=== PATIENT | male | born 1950 | race Caucasian/White ===

== ENCOUNTER 2020-05-28 06:35 | Outpatient (REF) | payer MEDICARE, SELFPAY ==
[2020-05-28 07:33] LABS: Alanine Aminotransferase 21 U/L (0-40); Albumin Level 4.3 g/dL (3.5-5.0); Alkaline Phosphatase 59 U/L (39-117); Anion Gap 14 (12-20); Aspartate Amino Transferase 23 U/L (5-37); Bilirubin Total 0.6 mg/dL (0.0-1.0); Blood Urea Nitrogen 26 mg/dL (9-16); Calcium 9.2 mg/dL (8.4-10.2); Carbon Dioxide 27 mmol/L (22-29); Chloride 104 mmol/L (96-108); Cholesterol 204 mg/dL; Estimated Glomerular Filt Rate 56; Glucose Fasting 103 mg/dL (60-99); HDL Cholesterol 52 mg/dL; LDL Cholesterol Calculated 116 mg/dl; Potassium 4.8 mmol/l (3.3-5.1); Sodium 140 mmol/L (135-145); Total Protein 7.6 g/dL (6.5-8.0); Triglycerides 182 mg/dL
== END 2020-05-28 06:36 | disposition home or self-care (01) ==
LOC: HO.LAB 06:35
PROVIDERS: PCP Internal Medicine; Visit Provider Internal Medicine
DX: I10 Essential (primary) hypertension (principal); T14.8XXA Other injury of unspecified body region, initial encounter
CPT/HCPCS: 80053; 80061; 84153; 86618

== ENCOUNTER 2020-06-26 09:34 | Outpatient (REF) | payer MEDICARE, SELFPAY ==
[2020-06-26 12:42] LABS: Erythrocyte Sedimentation Rate 12 MM/HR (0-15)
== END 2020-06-26 09:35 | disposition home or self-care (01) ==
LOC: HO.LAB 09:34
PROVIDERS: PCP Internal Medicine; Visit Provider Internal Medicine
DX: M35.3 Polymyalgia rheumatica (principal)
CPT/HCPCS: 36415; 85652

== ENCOUNTER 2021-11-14 14:37 | Outpatient (REF) | payer MEDICARE, SELFPAY ==
[2021-11-14 19:10] LABS: Alanine Aminotransferase 22 U/L (0-40); Albumin Level 3.9 g/dL (3.5-5.0); Alkaline Phosphatase 62 U/L (39-117); Anion Gap 15 (12-20); Aspartate Amino Transferase 22 U/L (5-37); Bilirubin Total 0.4 mg/dL (0.0-1.0); Blood Urea Nitrogen 26 mg/dL (9-16); Calcium 9.2 mg/dL (8.4-10.2); Carbon Dioxide 20 mmol/L (22-29); Chloride 108 mmol/L (96-108); Estimated Glomerular Filt Rate 49; Glucose Random 110 mg/dL (60-115); Potassium 3.8 mmol/L (3.3-5.1); Sodium 139 mmol/L (135-145); Total Protein 7.4 g/dL (6.5-8.0)
== END 2021-11-14 14:38 | disposition home or self-care (01) ==
LOC: HO.MANLDS 14:37
PROVIDERS: PCP Internal Medicine; Visit Provider Internal Medicine
DX: I10 Essential (primary) hypertension (principal)
CPT/HCPCS: 36415; 80053

== ENCOUNTER 2022-01-28 13:03 | Outpatient (REF) | payer MEDICARE, SELFPAY ==
--- NOTE | ~2022-01-28 | XR_ITS ---
EXAMINATION: XR KNEE, RIGHT CLINICAL INFORMATION: Pain COMPARISON: Radiographs right lower leg 04/05/2018 TECHNIQUE: The right knee is imaged in 3 views: Upright AP, tunnel, and axial patella. FINDINGS: There is no knee joint compartment narrowing, erosive change, or chondrocalcinosis. No bony destructive process or periostitis. Axial view patella shows no lateralization or tilting. The series does not include a lateral view, unable to assess for suprapatellar effusion. XR/XR knee RT 3V IMPRESSION: -No knee joint compartment narrowing, erosive change, or chondrocalcinosis. -No lateralization or tilting patella. -Lateral view is not included in series, unable to assess for suprapatellar effusion.
--- NOTE | ~2022-01-28 | XR_ITS ---
EXAMINATION: XR BILATERAL HIPS WITH AP PELVIS CLINICAL INFORMATION: Hip pain COMPARISON: None TECHNIQUE: Each hip is imaged in AP and frog-lateral projections. There are total of 4 views, 2 on each side. FINDINGS: Right: Normal bony mineralization. No fracture, dislocation or destructive process. No hip joint narrowing or erosive change or visible chondrocalcinosis. The pubis is unremarkable. Left: Right: Normal bony mineralization. No fracture, dislocation or destructive process. No hip joint narrowing or erosive change or visible chondrocalcinosis. The pubis is unremarkable. XR/XR hips MOISES min 3V IMPRESSION: No hip joint narrowing or erosive changes.
--- NOTE | ~2022-01-28 | XR_ITS ---
EXAMINATION: XR LUMBOSACRAL SPINE CLINICAL INFORMATION: Low back pain COMPARISON: None TECHNIQUE: Three views of the lumbosacral spine. FINDINGS: There are 5 nonrib-bearing lumbar vertebrae of normal height and normal lumbar lordosis. Probable mild osteopenia. No lumbar vertebral compression, spondylolisthesis, or destructive process. Mild disc narrowing T10-T11 through L1-L2 no visible erosive changes. Mild facet degeneration L4-S1. The SI joints are unremarkable. XR/XR lumbar spine 2-3V IMPRESSION: -Probable mild osteopenia. No vertebral compression or destructive process. -Mild multilevel degenerative disc changes T10-L2. Mild facet degeneration L4-S1.
== END 2022-01-28 13:04 | disposition home or self-care (01) ==
LOC: HO.XRAY 13:03
PROVIDERS: PCP Internal Medicine; Visit Provider Internal Medicine
DX: M54.50 Low back pain, unspecified (principal); M25.561 Pain in right knee; M25.551 Pain in right hip; M25.552 Pain in left hip
CPT/HCPCS: 72100; 73522; 73562

== ENCOUNTER 2022-04-09 14:11 | Outpatient (REF) | payer MEDICARE, SELFPAY ==
--- NOTE | ~2022-04-09 | US_ITS ---
EXAMINATION: ULTRASOUND EXTREMITY NONVASCULAR, RIGHT KNEE CLINICAL INFORMATION: Right knee pain COMPARISON: Right knee x-rays 01/28/2022 TECHNIQUE: Grayscale and color Doppler imaging of the right knee was obtained. Limited imaging of the left knee was obtained for comparison purposes. FINDINGS: No focal superficial mass identified. No well organized fluid collection appreciated. Trace suprapatellar joint effusion. No abnormal color Doppler flow. US/US extremity nonvascular osborne IMPRESSION: Trace suprapatellar joint effusion of the right knee.
== END 2022-04-09 14:12 | disposition home or self-care (01) ==
LOC: HO.US 14:11
PROVIDERS: Visit Provider Physician Assistant
DX: M25.561 Pain in right knee (principal)
CPT/HCPCS: 76882

== ENCOUNTER 2022-04-28 08:42 | Outpatient (REF) | payer MEDICARE, SELFPAY ==
--- NOTE | ~2022-04-28 | MR_ITS ---
EXAMINATION: MR LUMBAR SPINE WITHOUT CONTRAST CLINICAL INFORMATION: 71-year-old with lumbago and right sciatica. COMPARISON: None TECHNIQUE: MRI of the lumbar spine was obtained using routine sequences without contrast. FINDINGS: Coronal Alignment: Slight S-shaped lumbar scoliotic curvature, mildly convex to the right at L2-L3 and to the left at T12-L1. Sagittal Alignment: Normal. Lumbosacral Junction: Normal. 5 nonrib-bearing lumbar-type vertebral bodies. Vertebral Bodies: Normal height. Disc Spaces and Endplates: Multilevel egmz-di-nlfkipfz degrees of intervertebral disc space height loss and disc desiccation between T12-L1 and L5-S1 inclusive, with the gvww-zh-ryugcgnr degrees of anterolateral spondylosis most apparent at L1-L2 and T12-L1. Scattered small multilevel Schmorl's nodes are noted as well. Spinal Canal: There are relatively short pedicles throughout the mid to lower lumbar spine with a borderline to mild degree of developmental spinal canal narrowing. Bone Marrow: Minor type I degenerative marrow signal changes seen along the endplates posteriorly at L1-L2 and T12-L1. Minor type I degenerative marrow signal changes seen along the endplates at L5-S1 and adjacent to a Schmorl's node along the inferior endplate of L4. Type II degenerative marrow signal changes seen along the endplates at multiple levels with a small benign vertebral hemangioma in the T12 vertebral body. There is also a subcentimeter benign vertebral hemangioma in the L5 vertebral body. There is a 5 mm focus of low T1 signal in the dorsolateral aspect of the L2 vertebral body on the left which is slightly hyperintense centrally on STIR imaging with a thin rim of what appears to be some fat signal. This could reflect a small lipid poor hemangioma or other benign lesion. No suspicious marrow replacing process is suspected. Conus Medullaris: Terminates at L1-L2. Morphology and signal is normal. Intradural Nerve Roots: Within normal limits. L5-S1: There is mild disc bulging slightly asymmetric to the right with a superimposed central extruded disc herniation with mild cephalad migration, with mild flattening of the central dural sac. There is tnlf-uf-ehxtmnmb bilateral facet arthrosis with mild ligamentum flavum thickening and mild central canal stenosis. Mild narrowing of the subarticular zones is noted bilaterally with moderate left-sided and quzuwvxs-sk-fhwmus right-sided neural foraminal stenosis, with disc osteophyte complex abutting the exiting right L5 nerve root. L4-L5: Diffuse disc bulging is noted, with flattening of the ventral dural sac, with ligamentum flavum thickening and moderate bilateral facet arthropathy. There is wtsg-um-frylsntb central canal stenosis, with crowding of the subarticular zones bilaterally, with moderate bilateral neural foraminal stenosis. Disc bulging contacts the extra foraminal L4 nerve roots bilaterally. L3-L4: Concentric disc bulging is noted, with flattening of the ventral dural sac and a prominent dorsal epidural fat pad with bilateral paravertebral/posterolateral disc osteophyte complexes and moderate facet arthropathy. Mild central canal stenosis is noted, with mild narrowing of the subarticular zones bilaterally, with doly-fb-wivgyzzt bilateral neural foraminal stenosis. Disc osteophyte complex contacts the exiting L3 nerve roots bilaterally. L2-L3: Concentric disc osteophyte complex is noted with flattening of the ventral dural sac with a slightly prominent dorsal epidural fat pad and mild central canal stenosis with some crowding of the intradural nerve roots and crowding of the subarticular zones bilaterally. There is kzfi-eg-rrfdgpaq bilateral neural foraminal stenosis without neural impingement. L1-L2: Concentric disc osteophyte complex is noted asymmetric to the left, with flattening of the ventral dural sac and mild central canal stenosis with crowding of the intradural nerve roots. There is moderate left and mild right subarticular recess stenosis with left lateral recess stenosis and probable encroachment on the traversing left L2 nerve root. Minor facet arthrosis is noted bilaterally with qrym-op-xtjnnezd bilateral neural foraminal stenosis without exiting neural impingement. T12-L1: Posterior disc osteophyte complex noted with mild bilateral facet arthrosis without significant canal or neuroforaminal stenosis. Paraspinal/Retroperitoneal: Suspect 3.1 cm distal infrarenal abdominal aortic aneurysm. ACR best practice guidelines suggest follow-up every 3 years if asymptomatic. Additionally, there is a 3.4 x 3.8 cm left common iliac artery aneurysm. Recommend vascular consultation. The paravertebral soft tissues are otherwise unremarkable. MR/MR lumbar spine wo con IMPRESSION: 1. Slight S-shaped lumbar scoliotic curvature as described above with multilevel DDD and spondylosis. 2. Central disc herniation at L5-S1 and multilevel disc bulging and disc osteophyte complexes throughout the lumbar spine as detailed above, superimposed on congenitally short pedicles with a mild degree of developmental spinal canal narrowing, with multilevel bhuh-tj-kbplxxmv degrees of spinal canal stenosis as detailed above. 3. Multilevel bilateral facet arthropathy, with multilevel bilateral neural foraminal stenosis, most apparent on the right at L5-S1. See above for details. 4. 3.8 cm left common iliac artery aneurysm and a 3.1 cm distal infrarenal abdominal aortic aneurysm. Given the above findings, vascular consultation is strongly suggested. The [facility] staff will call to confirm receipt of this report with acknowledgement of the findings and any recommendations.
== END 2022-04-28 08:43 | disposition home or self-care (01) ==
LOC: HO.MRI 08:42
PROVIDERS: Visit Provider Internal Medicine
DX: M54.41 Lumbago with sciatica, right side (principal)
CPT/HCPCS: 72148

== ENCOUNTER 2022-10-16 07:29 | Outpatient (REF) | payer MEDICARE, SELFPAY ==
[2022-10-16 12:12] LABS: Hemoglobin 13.9 g/dl (14.0-18.0); Mean Corpuscular HGB Conc 33.1 g/dl (31.0-36.0); Mean Corpuscular Hemoglobin 30.8 pg (27.0-33.0); Mean Corpuscular Volume 93.1 fL (80.0-98.0); Mean Platelet Volume 11.7 fL (9.4-12.4); Platelet Count 198 X10*3/uL (160-400); Red Blood Count 4.51 X10*6/uL (4.60-5.80); Red Cell Distribution Width 13.7 % (11.0-16.0); White Blood Count 5.5 X10*3/uL (4.8-10.8)
[2022-10-16 12:56] LABS: Alanine Aminotransferase 23 U/L (0-40); Albumin Level 4.1 g/dL (3.5-5.0); Alkaline Phosphatase 74 U/L (39-117); Anion Gap 12 (12-20); Aspartate Amino Transferase 26 U/L (5-37); Bilirubin Total 0.7 mg/dL (0.0-1.0); Blood Urea Nitrogen 22 mg/dL (9-16); Calcium 8.9 mg/dL (8.4-10.2); Carbon Dioxide 24 mmol/L (22-29); Chloride 106 mmol/L (96-108); Cholesterol 215 mg/dL; Estimated Glomerular Filt Rate 56; Glucose Fasting 98 mg/dL (60-99); HDL Cholesterol 53 mg/dL; LDL Cholesterol Calculated 129 mg/dl; Potassium 4.3 mmol/L (3.3-5.1); Sodium 138 mmol/L (135-145); Total Protein 6.9 g/dL (6.5-8.0); Triglycerides 165 mg/dL
[2022-10-16 13:02] LABS: Prostate Specific Antigen 1.62 ng/mL (<0.05-4.0)
== END 2022-10-16 07:30 | disposition home or self-care (01) ==
LOC: HO.MANLDS 07:29
PROVIDERS: Visit Provider Internal Medicine
DX: E78.1 Pure hyperglyceridemia (principal); Z12.5 Encounter for screening for malignant neoplasm of prostate
CPT/HCPCS: 36415; 80053; 80061; 84153; 85027

== ENCOUNTER 2024-01-13 07:48 | Outpatient (REF) | payer MEDICARE, SELFPAY ==
--- NOTE | ~2024-01-13 | US_ITS ---
EXAMINATION: US RETROPERITONEAL LIMITED (AORTA) CLINICAL INFORMATION: AAA without rupture. COMPARISON: MR lumbar spine 04/28/2022: 3.8 cm left common iliac artery aneurysm and a 3.1 cm distal infrarenal abdominal aortic aneurysm. TECHNIQUE: Hinojosa-scale, color Doppler and spectral Doppler evaluation of the abdominal aorta. FINDINGS: This study is grossly abnormal. There is a a 3.7 x 3.6 cm abdominal aortic aneurysm present which ends above the aortic bifurcation. At the time of the MR lumbar spine study on 04/28/2022, the AAA measured 3.1 cm. Measurements are as follows: Proximal aorta: 3.3 x 3.2 cm Mid abdominal aorta (above aneurysm): 2.3 x 2.2 cm Abdominal aortic aneurysm: 3.7 x 3.6 cm Distal abdominal aorta beyond the aneurysm: 2.3 x 1.8 cm Peak systolic velocity in the distal aorta is 96 cm/s. Minimal thrombus is present in the abdominal aortic aneurysm. There is a large left common iliac artery aneurysm present measuring 4.3 x 4.6 cm filled with a regular thrombus with multiple channels of flow through it. The diameter of the iliac artery above the aneurysm is 1.6 x 1.8 cm. At the time of a MR spine study on 04/28/2022 the common iliac artery aneurysm measured a maximum of 3.8 cm. The right common iliac artery appears normal measuring 1.8 x 1.4 cm. US/US abdominal aortic aneurysm IMPRESSION: 1. Abdominal aortic aneurysm measuring 3.7 cm in maximum diameter increased in size significantly since 04/28/2022 when it measured 3.1 cm. 2. Left common iliac artery aneurysm measuring 4.6 cm in maximum diameter increased in size significantly since 04/28/2022 when it measured 3.8 cm. 3. Recommend vascular consultation. If repair is not performed, recommend follow-up of the AAA every 2 years.
== END 2024-01-13 07:49 | disposition home or self-care (01) ==
LOC: HO.US 07:48
PROVIDERS: PCP Internal Medicine; Visit Provider Internal Medicine
DX: I71.40 Abdominal aortic aneurysm, without rupture, unspecified (principal)
CPT/HCPCS: 76706

== ENCOUNTER 2025-01-25 09:18 | Outpatient (REF) | payer MEDICARE, SELFPAY ==
--- OUTSIDE RECORDS SUMMARY | 2024-05-09 04:00 | XMS_ITS ---
Author Name [facility] [place] [facility] [place] [facility] [place] Address [address] [place] [address] Care Team Providers Care Manager Call Name Role Phone DEEP SANCHEZ Primary Care Provider Unavailabl SAMRA Christopher Primary Care Provider Unavailabl kyler Insurance Providers: All historical and current Section Date Range: From patient's date of to the date document was created. This section includes the names of all active insurance providers for the patient. Insurance Provider Type of Coverage Plan Name Start of Policy Coverage End of Policy Coverage Group Number Member ID Insurance Provider's Telephone Number Policy Jay's Name Patient's Relationship to Policy Jay [facility] ER Oct 17, 2013 [id number] Adebayo SULLIVAN PATIENT [employer] [facility] (WNR) MEDICARE ADVANTAGE [facility](W NR) Aug 19, 2024 [id number] Adebayo SULLIVAN PATIENT [facility] (WNR) MEDICARE ADVANTAGE [facility] (WNR) Apr 18, 2017 [facility] [id number] Adebayo SULLIVAN PATIENT Selected Encounter This section includes the information on record at [place] for the Encounter. Date/Time Encounter Type Encounter Description Reason Provider Source May 09, 2024 08:00 AM OFFICE O/P EST MOD 30 MIN PRIMARY CARE/MEDICINE ICD-10-CM G25.81 Restless legs syndrome SAMRA ALVARES [facility] Encounter Template Text not used by [place] Assessments - Encounter Diagnoses This section includes the primary and secondary diagnoses documented for the Encounter. Date/Time Primary/Secondary Diagnosis Diagnosis Name Provider Source May 09, 2024 03:35 PM PRIMARY Restless legs syndrome SAMRA ALVARES [facility] [place] [facility] May 09, 2024 03:35 PM SECONDARY Depression, unspecified SAMRA ALVARES [facility] [place] [facility] May 09, 2024 03:35 PM SECONDARY Encounter for immunization BRETTSARINA SSA H [facility] [place] [facility] May 09, 2024 03:35 PM SECONDARY Essential (primary) hypertension SAMRA ALVARES [facility] [place] [facility] Plan of Treatment: Future Appointments (+ 6 months) and Future Tests (+/- 45 days) The Plan of Treatment section includes future care activities for the patient [facility] [place] [facility] This section includes future appointments and future orders which are active, pending or scheduled. Future Appointments This section includes appointments that were scheduled to occur 6 months from the date of the Encounter, up to a maximum of 20 appointments. The data comes from all [place] treatment facilities. Appointment Date/Time Appointment Type Appointme nt Facility Name Jun 07, 2024 01:00 PM [facility] Jun 12, 2024 09:00 AM [facility] [place] [facility] Jul 10, 2024 09:00 AM AMBULATORY - PSYCHIATRY [facility] [place] [facility] Oct 03, 2024 01:00 PM AMBULATORY - NONE [place] [facility] Vital Signs: All taken on the encounter date This section contains inpatient and outpatient Vital Signs collected on the date of the Encounter. Date/Time Temperature Pulse Blood Pressure Respiratory Rate SP02 Pain Height Weight Body Mass Index Source May 09, 2024 08:06 AM 97.5 58 177/81 16 98 196 31 [facility] [place] [facility] Immunizations: All administered on the encounter date This section contains immunizations associated to the Encounter. Immunization Series Date Issued Administered By Site Reaction Lot Number [id number] Code Drug Manufacturing Supervisor Comment(s) Source INFLUENZA, HIGH-DOSE, TRIVALENT, PF May 09, 2024 SARINA DEE H LEFT DELTO ID [id number] [employer] PASTEUR ADMINISTERE D AT [place], [place] [facility] [place] [facility] Social History: Smoking Status (Most current) and Tobacco Use (All prior to encounter date) This section includes the most current, and the historical, smoking and tobacco- related health factors from the [place] facility where the Encounter took place. Current Smoking Status This section includes the most current smoking, or tobacco-related health factor, from the [place] facility where the Encounter took place. Date/Time Current Smoking Status Comment Facil ity Oct 27, 2023 10:00 AM [place]-TOBACCO NEVER USED [facility] [place] [facility] Tobacco Use History This section includes a history of the smoking, or tobacco-related health factors, that were collected on or before the date of the Encounter. The data comes from the [place] facility where the Encounter took place. Date/Time Smoking Status/Tobacco Use Comment F acility Sep 23, 2022 10:00 AM VA-TOBACCO NEVER USED [facility] [place] [facility] Aug 29, 2021 05:59 PM VA-TOBACCO NEVER USED [facility] [place] [facility] Encounter Notes: All associated encounter notes This section contains the clinical notes associated to the Encounter. Date/Time Encounter Note(s) Provider Source May 09, 2024 08:29 AM PRIMARY CARE NURSE PRACTITIONER OUTPATIENT NOTE: LOCAL TITLE: NURSE PRACTITIONER OUTPATIENT NOTE STANDARD TITLE: PRIMARY CARE NURSE PRACTITIONER OUTPATIENT NOTE DATE OF NOTE: MAY 09, 2024@08:29 ENTRY DATE: MAY 09, 2024@08:29:21 AUTHOR: SAMRA ALVARES EXP COSIGNER: URGENCY: STATUS: COMPLETED Pt is a 73 who comes in for follow up of medical problems as noted below. Juan gets all his care and medications from his non [facility] PCP Dr Austin, He and Byron are moving to [place], [place] I have placed a moving vet consult HPI: RLS tried gabapentin did not work, his ferrtin was checked was 56 so > 30 his non VA PCP had tried him on amlodipine with ropinerole but did not help BP or RLS HTN not quite at goal, recently was taken off his Amlodipine and place on Metorprolol 50mg BID, there is thought that he mght do better on SR daily he sees his [facility] in a few weeks, has been doing telehelath program Depression getting fluoxetine 20mg daily from prior ([facility]) home Outaptient provider Dr Gallegos who is still Rxing this for him, he is wondering about another provider taking it over and wanted MH consult. PMH: Active problems - Computerized Problem List is the source for the followin. Depression 2. Hypertension 3. Restless legs 4. Insomnia Allergies: Patient has answered NKA The following VA and Non-VA meds were reconciled with patient: Active and Recently Outpatient Medications (excluding Supplies): Active Outpatient Medications Status = 1) ACETAMINOPHEN 500MG TAB TAKE TWO TABLETS BY MOUTH ACTIVE THREE TIMES DAILY NEEDED FOR PAIN Active Non-VA Medications Status = 1) Non-VA AMLODIPINE BESYLATE 5MG TAB 5MG BY MOUTH ONCE ACTIVE DAILY 2) Non-VA FLUOXETINE HCL 20MG CAP 20MG BY MOUTH ONCE ACTIVE DAILY 3) Non-VA GLUCOSAMINE CAP/TAB BY MOUTH ACTIVE 4) Non-VA METOPROLOL TARTRATE 50MG TAB 50MG BY MOUTH ACTIVE TWICE DAILY 5) Non-VA MULTIVITAMIN (WITHOUT MINERALS) CAP/TAB BY ACTIVE MOUTH 6) Non-VA MULTIVITAMIN CAP/TAB 1 TABLET BY MOUTH ONCE ACTIVE DAILY 7) Non-VA ROPINIROLE HCL 2MG TAB 2MG BY MOUTH TWICE ACTIVE DAILY 8 Total Medications Allergies: Patient has answered NKA VITAL SIGNS: 97.5 F [36.4 C] (05/09/2024 08:06) 58 (05/09/2024 08:06) 16 (05/09/2024 08:06) 177/81 (05/09/2024 08:06) 0 (10/27/2023 10:38) 67 in [170.2 cm] (09/26/2021 09:55) 196 lb [88.90 kg] (05/09/2024 08:06) BMI: 30.8 ROS General: no fever, no unexplained weight loss or gain CV: denies CP, palpitations Lung: denies Dyspnea or wheezing Ext: denies edema Psych: denies SI Neuro: denies dizziness, falls, MORALES PHY SICAL EXAM GENERAL: well appearing [place] in NAD, speeking in clear sentences. RESP: CTAB, no wheezing or Rales. Cards: S1 S2 RRR, No m/r/g no JVD, No Pedal Edema, Distal Pulses palpable NEURO CN II-XII grossly intactMENTAL A&Ox3 Appropriate, Pleasant, Cooperative LAB RESULTS LAST 1440 HRS - NONE FOUND Future Clinic Visits 11/01/2024 08:00 CWM/NO/OPTOMETRY/MERHAR ASSESSMENT AND PLAN: RLS -failed gabapentin -ferrtin was checked was 56 -Cont ropinerole, still not always helping -He will discuss with Dr Zaidi or new PCP at [facility] VA HTN -not quite at goal -Dr Zaidi in [facility] dc'd his Amlodipine and place on Metorprolol 50mg BID -He will follow with Dr zaidi has appt in 2 weeks Depression -Cont fluoxetine 20mg daily from prior [place] ([facility]) home - referral placed he feels like not helping recently -denies SI and will be transferingh to [facility] in 3-5 months Return to clinic at upcoming PCP appt in [facility] or [facility] near [facility] Moving consult placed, he can RTC sooner here if needed. Clinical Reminders HTN Assess for Elevated BP>=140/90: Other Reason: follows with [facility] PCP HIV Screening: Patient has been offered HIV testing and has declined. I have explained that HIV testing is recommended for all adults, even if all risk factors are absent. The patient was educated on the risk of delayed screening. /ceci/ YANETH ALEX Nurse Practitioner Signed: 05/09/2024 15:34 SAMRA ALVARES [facility] May 09, 2024 07:59 AM PREVENTIVE MEDICINE NURSING NOTE: LOCAL TITLE: CLINICAL REMINDERS/NURSING STANDARD TITLE: PREVENTIVE MEDICINE NURSING NOTE DATE OF NOTE: MAY 09, 2024@07:59 ENTRY DATE: MAY 09, 2024@07:59:46 AUTHOR: ISIS DEE EXP COSIGNER: URGENCY: STATUS: COMPLETED CLINICAL REMINDERS/NURSING Has ADDENDA HTN /ceci/ ISIS DEE REGISTERED NURSE Signed: 05/09/2024 08:20 05/09/2024 ADDENDUM STATUS: COMPLETED Influenza Immunization: Influenza, High-Dose, Trivalent, Preservative Free (Fluzone-Syringe) Administered: INFLUENZA, HIGH-DOSE, TRIVALENT, PF Date Administered: May 09, 2024 08:00 Manufacturing Supervisor: [employer] PASTEUR Lot: [id number] Exp Date: Jan 15, 2025 [facility]: [id number] Admin Route/Site: INTRAMUSCULAR/LEFT DELTOID Dosage: 0.5mL Vaccine Information Statement(s): INFLUENZA(FLU) VACC(INACTIVATED OR RECOMBINANT)VIS Feb 21, 2021 (MALAGASY) Order By: Policy Administered By: Isis Dee The Influenza Vaccine Information Statement (VIS) was reviewed with the patient/caregiver which lists the benefits and risks of the vaccine and the risks of not receiving the Influenza vaccine. The patient/caregiver denied any prior severe reaction to this vaccine or its components or a severe allergic reaction, such as anaphylaxis, to any vaccine or any injectable therapy. The patient/caregiver gave verbal consent to receive the vaccine. COVID-19 Immunization: Moderna Monovalent (Spikevax) Administered: COVID-19 (MODERNA), MRNA, LNP-S, PF, 50 MCG/0.5 ML (AGES 12+ YEARS) Date Administered: May 09, 2024 08:00 Manufacturing Supervisor: [employer] Lot: [id number] Exp Date: Dec 23, 2024 [facility]: [id number] Admin Route/Site: INTRAMUSCULAR/RIGHT DELTOID Dosage: 0.5mL Vaccine Information Statement(s): COVID-19 MRNA VACCINE (12+ YRS) VACCINE VIS May 06, 2023 (MALAGASY) Order By: Policy Administered By: Isis Dee Vaccine administered without complications. Herpes Zoster (Shingles) Vaccine: Prior Herpes Zoster vaccination The patient has been vaccinated in the past but written documentation of vaccination is not available today. Patient instructed to obtain a written record of the prior vaccine and bring it to the next appointment. /ceci/ ISIS DEE REGISTERED NURSE Signed: 05/09/2024 08:23 ISIS DEE [facility]
[2025-01-25 09:38] LABS: MANUAL DIFF FLAG NO
--- OUTSIDE RECORDS SUMMARY | 2025-01-25 09:46 | XMS_ITS | Data Portability ---
Author Organization [facility] Internal Medicine, Telehealth Patient Home Address [address] [place] [address] Assessment Encounter Date Assessment Date Assessment LastModified by Organization Details LastModified Time 02/11/2024 02/11/2024 [id number] [place] [id number] (BOOK SOLICITOR) [facility] MODERATE MUST MEET 2 OUT OF 3 ELEMENTS: PROBLEMS, DATA OR RISK ELEMENT 1: PROBLEMS ADDRESSED 1 OR MORE CHRONIC ILLNESS WITH EXACERBATION OR 2 OR MORE STABLE CHRONIC ILLNESSES OR 1 UNDIAGNOSED NEW PROBLEM OR 1 ACUTE ILLNESS W/SYMPTOMS OR 1 ACUTE COMPLICATED INJURY ELEMENT 2: DATA MUST MEET 1 OF 3 CATEGORIES CATEGORY 1: REVIEW OF PRIOR EXTERNAL NOTES, REVIEW OF RESULTS, ORDERING OF EACH TEST, ASSESSMENT REQUIRING INDEPENDENT HISTORIAN OR CATEGORY 2: INDEPENDENT INTERPRETATION OF TESTS BY ANOTHER PHYSICIAN OR SPECIALIST OR CATEGORY 3: DISCUSSION OF MGT OR TEST INTERPRETATION W/EXTERNAL PHYSICIAN OR SPECIALIST ELEMENT 3: RISK RISK OF COMPLICATIONS AND/OR MORBIDITY OR MORTALITY OF PATIENT MANAGEMENT PROVIDER MUST THOROUGHLY DOCUMENT EACH ELEMENT THAT IS COVERED Not available 02/11/2024 11:17:28 03/29/2024 03/29/2024 [id number] [place] [id number] (BOOK SOLICITOR) [facility] MODERATE MUST MEET 2 OUT OF 3 ELEMENTS: PROBLEMS, DATA OR RISK ELEMENT 1: PROBLEMS ADDRESSED 1 OR MORE CHRONIC ILLNESS WITH EXACERBATION OR 2 OR MORE STABLE CHRONIC ILLNESSES OR 1 UNDIAGNOSED NEW PROBLEM OR 1 ACUTE ILLNESS W/SYMPTOMS OR 1 ACUTE COMPLICATED INJURY ELEMENT 2: DATA MUST MEET 1 OF 3 CATEGORIES CATEGORY 1: REVIEW OF PRIOR EXTERNAL NOTES, REVIEW OF RESULTS, ORDERING OF EACH TEST, ASSESSMENT REQUIRING INDEPENDENT HISTORIAN OR CATEGORY 2: INDEPENDENT INTERPRETATION OF TESTS BY ANOTHER PHYSICIAN OR SPECIALIST OR CATEGORY 3: DISCUSSION OF MGT OR TEST INTERPRETATION W/EXTERNAL PHYSICIAN OR SPECIALIST ELEMENT 3: RISK RISK OF COMPLICATIONS AND/OR MORBIDITY OR MORTALITY OF PATIENT MANAGEMENT PROVIDER MUST THOROUGHLY DOCUMENT EACH ELEMENT THAT IS COVERED Not available 03/29/2024 10:17:30 06/23/2024 06/23/2024 Patient presente d to office today for their Medicare Annual Wellness Visit. Education was provided on healthy nutrition, including a diet rich in fruits and vegetables, minimizing simple carbohydrates, salt, and saturated fats. Encouraged regular cardiovascular exercise such as walking at least 30 minutes daily, 5 times per week. Emphasized preventive health measures and educated pt on fall prevention and community-based lifestyle interventions to help reduce health risks and promote healthy living. Not available 05/12/2024 16:35:57 07/28/2024 07/28/2024 [id number] [place] [id number] (BOOK SOLICITOR) MDM MODERATE MUST MEET 2 OUT OF 3 ELEMENTS: PROBLEMS, DATA OR RISK ELEMENT 1: PROBLEMS ADDRESSED 1 OR MORE CHRONIC ILLNESS WITH EXACERBATION OR 2 OR MORE STABLE CHRONIC ILLNESSES OR 1 UNDIAGNOSED NEW PROBLEM OR 1 ACUTE ILLNESS W/SYMPTOMS OR 1 ACUTE COMPLICATED INJURY ELEMENT 2: DATA MUST MEET 1 OF 3 CATEGORIES CATEGORY 1: REVIEW OF PRIOR EXTERNAL NOTES, REVIEW OF RESULTS, ORDERING OF EACH TEST, ASSESSMENT REQUIRING INDEPENDENT HISTORIAN OR CATEGORY 2: INDEPENDENT INTERPRETATION OF TESTS BY ANOTHER PHYSICIAN OR SPECIALIST OR CATEGORY 3: DISCUSSION OF MGT OR TEST INTERPRETATION W/EXTERNAL PHYSICIAN OR SPECIALIST ELEMENT 3: RISK RISK OF COMPLICATIONS AND/OR MORBIDITY OR MORTALITY OF PATIENT MANAGEMENT PROVIDER MUST THOROUGHLY DOCUMENT EACH ELEMENT THAT IS COVERED Not available 07/28/2024 14:47:44 10/23/2024 10/23/2024 Patient presente d to office today for their Medicare Annual Wellness Visit. Education was provided on healthy nutrition, including a diet rich in fruits and vegetables, minimizing simple carbohydrates, salt, and saturated fats. Encouraged regular cardiovascular exercise such as walking at least 30 minutes daily, 5 times per week. Emphasized preventive health measures and educated pt on fall prevention and community-based lifestyle interventions to help reduce health risks and promote healthy living. [email or web address] Not available 10/13/2024 10:14:30 Plan of Treatment Reminders Order Date Submit Date Provider Last Modified By Organization Details Last Modified Time Details Appointments FOLLOW UP 15 2025 01:30P Jose HSAH Not available Not available Not available Lab lipid panel, blood 2024 0407/ 025 [facility], [address] [place] [address], [place], [id number], 10/23/2024 11:57:21 hemoglobi n, gastroint estinal, stool 2024 025 [facility], [address] [place] [address], [id number], 10/23/2024 11:57:21 PSA, serum or plasma 2024 025 [facility], [address] [place] [address], [id number], 10/23/2024 12:05:24 CBC w/ auto diff 2024 025 [facility], [address] [place] [address], [id number], 10/23/2024 11:57:21 CMP, serum or plasma 2024 025 [facility], [address] [place] [address], [id number], 10/23/2024 11:57:20 lipid panel, blood 2023 024 [facility], [address] [place] [address], [id number], 06/23/2024 11:49:06 hemoglobi n, gastroint estinal, stool 2023 024 [facility], [address] [place] [address], [id number], 06/23/2024 11:49:06 CBC w/ auto diff 2023 024 [facility], [address] [place] [address], [id number], 06/23/2024 11:49:06 CMP, serum or plasma 2023 024 [facility], [address] [place] [address], [id number], 06/23/2024 11:49:06 Referral None recorded. Procedures None recorded. Surgeries None recorded. Imaging None recorded. Medication Orders metoprolo l succinate ER 50 mg tablet,ex tended release 24 hr 2024 025 [facility][id number], [address] [place] [address], [id number], 07/28/2024 14:46:51 duloxetin e 60 mg capsule,d elayed release 2023 024 [facility] #78011, [address], [place], [id number], 06/23/2024 11:47:53 metoprolo l tartrate 50 mg tablet 2023 025 [facility] #[id number], [address], [place], [id number], 07/28/2024 14:47:18 propranol ol 20 mg tablet 2023 024 [facility] #[id number], [address] [place] [address], [id number], 03/29/2024 10:08:48 Patient TargetsNo targets recorded. Patient Instructions Encounter Date Encounter Id Patient Instructions Last Modified By Organization Details Last Modified Time 02/11/2024 [id number] restless legs syndrome: care instructions Not available 02/11/2024 11:28:28 06/23/2024 [id number] restless legs syndrome: care instructions Not available 06/23/2024 11:47:48 Discussed and explained advance directives such as standard forms to the . Face to face discussion lasted for a duration of ___ minutes. Not available 05/12/2024 16:35:58 10/23/2024 [id number] advance care planning: care instructions Not available 10/23/2024 11:55:46 Discussed and explained advance directives such as standard forms to the patient. Face to face discussion lasted for a duration of ___35 minutes. Not available 10/23/2024 11:55:31 Reason for Referral None Reported. Results Created Date Observation Date Name Description Value Unit Range Abnormal Flag Note LastModifiedBy Organization Detail LastModifiedTime 01/13/20 24 01/13/2024 US, abdom inal aorta No observ ation record ed. [facility] (Medical Records) [address] [place], [address], 02/11/2024 11:09:14 01/13/20 24 01/13/2024 US, abdom inal aorta No observ ation record ed. [facility] (Medical Records) [address] [place], [address], 02/11/2024 11:09:13 Result Notes None recorded. Problems Name Problem SNOMED Code Status Onset Date Resolution Date Notes Provider Name and Address Organization Details Recorded Time Restless legs 40397728 Active 2020 Not Available [facility] 3 18:37:17 Renal insuffici ency 093121514 Active 2021 Not Available [facility] 3 18:37:17 Low back pain 067200154 Active 2021 Not Available [facility] 3 18:37:17 Pain of right knee joint 668029007565 100 Active 2021 Not Available [facility] 3 18:37:17 Pain of bilateral hip joints 739955733160 53282 Active 2021 Not Available [facility] 3 18:37:17 Lumbago with sciatica 334934164 Active 2021 Not Available [facility] 3 18:37:17 Lumbago with sciatica 142618576 Active 2021 Not Available [facility] 3 18:37:17 Degenerat ion of lumbar intervert ebral disc 40233087 Active 2021 Not Available [facility] 3 18:37:17 Herniatio n of nucleus pulposus of lumbar intervert ebral disc 309579003077 106 Active 2021 Not Available [facility] 3 18:37:17 Strain of hamstring tendon 247133397 Active 2021 Not Available [facility] 3 18:37:17 Abdominal aortic aneurysm 384609945 Active 2021 Not Available [facility] 3 18:37:17 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 Not Available [facility] 3 18:37:17 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 Rashi Shah, DO [address] [place] [address], [phone], [facility] 3 15:11:45 Anaplasmo sis 52377409 Active 2022 Rashi Shah DO [address] [place] [address], [phone], [facility] 3 15:03:25 Cough 01166599 Active 2023 Rashi Shah DO [address] [place] [address], [phone], [facility] 4 14:49:02 Insomnia 308979320 Active 2023 Rashi Shah DO [address] [place] [address], [phone], [facility] 4 11:36:47 Anxiety 49880789 Active 2023 Rashi Shah, DO [address] [place] [address], [phone], [facility] 4 11:46:45 Hypertens lolly disorder 97341955 Active 2017 Not Available [facility] 3 18:37:17 Hypertrig lyceridem ia 998246576 Active 2017 Not Available [facility] 3 18:37:17 Adenomato us polyp of colon 696236648 Active 2017 2016 Not Available [facility] 3 18:37:17 Meralgia paresthet ica 83227274 Active 2017 Not Available [facility] 3 18:37:17 Tick bite 55940413 Active 2017 Not Available [facility] 3 18:37:17 Problem Notes None recorded. Medical Equipment None Reported. Allergies No known drug allergies Medications Name Sig Start Date Stop Date Status Note LastModified by Organization Details LastModified Time doxycyclin e hyclate 100 mg capsule TAKE 1 CAPSULE BY MOUTH TWICE DAILY FOR 7 DAYS 01/11 completed Not Available Not Available Not Available ropinirole 1 mg tablet TAKE 1 TABLET BY MOUTH EVERY DAY AT BEDTIME 01/28 completed Not Available Not Available Not Available sildenafil 50 mg tablet TAKE 1 TABLET BY MOUTH EVERY DAY FOR 14 DAYS 05/02 completed Not Available Not Available Not Available azithromyc in 250 mg tablet TAKE 2 TABLETS (500 MG) BY ORAL ROUTE ONCE DAILY FOR 1 DAY THEN 1 TABLET (250 MG) BY ORAL ROUTE ONCE DAILY FOR 4 DAYS 01/11 completed Not Available Not Available Not Available metoprolol succinate ER 50 mg tablet,ext ended release 24 hr TAKE 1 TABLET BY MOUTH EVERY DAY 2024 active Not Available Not Available Not Avai lable hydrocodon e 5 mg-acetami nophen 325 mg tablet TAKE 1 TABLET BY MOUTH EVERY 6 HOURS NEEDED FOR PAIN 01/24 completed Not Available Not Available Not Available propranolo l ER 60 mg capsule,24 hr,extende d release TAKE 1 CAPSULE BY MOUTH EVERY DAY 03/29 completed Not Available Not Available Not Available amlodipine 5 mg tablet TAKE 1 TABLET BY MOUTH EVERY DAY active Not Available Not Available No t Available sildenafil 100 mg tablet 2020 active 1 tablet prn Not Available Not Available Not Available amoxicilli n 500 mg tablet TAKE 1 TABLET BY MOUTH THREE TIMES DAILY 01/24 completed Not Available Not Available Not Available doxycyclin e monohydrat e 100 mg capsule TAKE 1 CAPSULE BY MOUTH EVERY DAY FOR 10 DAYS. TAKE WITH A DAILY PROBIOTI C 01/11 completed Not Available Not Available Not Available ropinirole 2 mg tablet TAKE 1 TABLET BY MOUTH THREE TIMES DAILY active Not Available Not Available No t Available ropinirole 0.5 mg tablet TAKE 1 TABLET BY MOUTH EVERY DAY IN THE EVENING 05/02 completed Not Available Not Available Not Available metoprolol tartrate 50 mg tablet TAKE 1 TABLET BY MOUTH TWICE DAILY 07/28 completed Not Available Not Available Not Available hydrochlor othiazide 12.5 mg capsule TAKE 1 CAPSULE BY MOUTH EVERY DAY 03/26 completed Not Available Not Available Not Available triamteren e 37.5 mg-hydroch lorothiazi de 25 mg tablet TAKE 1 TABLET BY MOUTH EVERY DAY 01/28 completed Not Available Not Available Not Available diclofenac sodium 75 mg tablet,del ayed release TAKE 1 TABLET BY MOUTH TWICE DAILY FOR 10 DAYS 01/11 completed Not Available Not Available Not Available hydrochlor othiazide 25 mg tablet TAKE 1 TABLET BY MOUTH EVERY DAY 05/02 completed Not Available Not Available Not Available zolpidem 10 mg tablet TAKE 1 TABLET BY MOUTH EVERY DAY FOR 14 DAYS NEEDED 10/23 completed Not Available Not Available Not Available propranolo l 20 mg tablet TAKE 1 TABLET BY MOUTH TWICE DAILY 03/29 completed Not Available Not Available Not Available fluoxetine 20 mg capsule TAKE 1 & 1/2 CAPSULE BY MOUTH EVERY DAY 06/23 completed Not Available Not Available Not Available duloxetine 60 mg capsule,de layed release TAKE 1 CAPSULE BY MOUTH EVERY DAY active Not Available Not Available No t Available chlorhexid ine gluconate 0.12 % mouthwash RINSE WITH 10 ML BY MOUTH 2 TIMES A DAY FOR 3 WEEKS 01/24 completed Not Available Not Available Not Available Prevnar 13 (PF) 0.5 mL intramuscu lar syringe 12/20 completed Not Available Not Available Not Available doxepin 6 mg tablet Take 1 tablet every day by oral route. active Not Available Not Available No t Available Fluzone High-Dose 4021-2731 (PF) 180 mcg/0.5 mL intramuscu lar syringe 12/20 completed Not Available Not Available Not Available Vitals Date Recorded Body height Body mass index (BMI) Body weight Heart rate Oxygen saturation Oxygen saturation in Arterial blood by Pulse oximetry Systolic And Diastolic Provider Name and Address Organization Details Last Updated DateTime 5 177.8 cm 27.1 kg/m2 74449.9 6 g 54 /min 98 % 98 % 128/70 mm[Hg] Nayeli Pardo [facility] 5 14:26:07 Date Recorded Body height Body mass index (BMI) Body weight Heart rate Oxygen saturation Oxygen saturation in Arterial blood by Pulse oximetry Systolic And Diastolic Provider Name and Address Organization Details Last Updated DateTime 5 177.8 cm 27.1 kg/m2 02052.9 6 g 72 /min 99 % 99 % 138/68 mm[Hg] Nayeli Petty [facility] 5 11:26:18 Date Recorded Body weight Heart rate Oxygen saturation Oxygen saturation in Arterial blood by Pulse oximetry Systolic And Diastolic Provider Name and Address Organization Details Last Updated DateTime 4 82608.6 g 58 /min 98 % 98 % 138/82 mm[Hg] Maya Oscar [facility] 4 10:46:03 Date Recorded Body height Body mass index (BMI) Body weight Heart rate Oxygen saturation Oxygen saturation in Arterial blood by Pulse oximetry Systolic And Diastolic Provider Name and Address Organization Details Last Updated DateTime 4 177.8 cm 27.1 kg/m2 16905.9 6 g 47 /min 99 % 99 % 144/84 mm[Hg] Nayeli Petty [facility] 4 09:52:11 Date Recorded Body height Body mass index (BMI) Body weight Heart rate Oxygen saturation Oxygen saturation in Arterial blood by Pulse oximetry Systolic And Diastolic Provider Name and Address Organization Details Last Updated DateTime 4 177.8 cm 27.1 kg/m2 03865.9 6 g 48 /min 98 % 98 % 126/78 mm[Hg] Daniel Foster [facility] 4 11:13:44 Social History Question Answer Notes LastModified by [employer] Details LastModified Time Tobacco Smoking Status Never Smoker Not Available [facility] 05/21/2020 03:36:24 What Was The Date Of Your Most Recent Tobacco Screening? 10/23/2024 [email or web address] Information not available 10/23/2024 Sex: Unknown Functional Status Question Answer Note LastModified by [employer] Details LastModified Time Do you use any illicit or recreational drugs? No Information not available 10/20/2021 Do you or have you ever used any other forms of tobacco or nicotine? No Information not available 10/20/2021 Mental Status None recorded. Family History Nothing Reported. Medical History No medical history recorded. Immunizations Vaccine Type Date Status Note Provider Nam e and Address Organization Details Recorded Time COVID-19, mRNA, LNP-S, PF, 30 mcg/0.3 mL dose 10/31/19 21 completed Rashi Shah DO [address] [place] [address], [phone], [facility] 01/24/2021 14:34:13 COVID-19, mRNA, LNP-S, PF, 30 mcg/0.3 mL dose 11/22/19 21 completed Rashi Shah DO [address] [place] [address], [phone], [facility] 01/24/2021 14:34:19 Influenza, split virus, quadrivalent, preservative 09/03/19 22 completed Rashi Shah DO [address] [place] [address], [phone], [facility] 10/20/2021 14:50:35 COVID-19, mRNA, LNP-S, PF, 100 mcg/0.5mL dose or 50 mcg/0.25mL dose 09/20/19 22 completed Rashi Shah DO [address] [place] [address], [phone] 10/20/2021 14:51:02 Pneumococcal conjugate PCV 13 05/05/20 17 [facility] 14:54:19 Pneumococcal conjugate PCV 13 11/24/19 19 [facility] 10/20/2021 14:54:25 pneumococcal polysaccharide PPV23 02/09/20 20 jeanie grant [facility] 10/20/2021 14:54:36 zoster recombinant 03/18/20 20 jeanie grant [facility] 10/20/2021 14:55:01 Tdap 03/18/20 20 [facility] 10/20/2021 14:55:17 Influenza, split virus, quadrivalent, preservative 05/05/20 17 completed oJ Carvalho rudy [facility] 10/20/2021 14:55:30 Influenza, split virus, quadrivalent, preservative 04/20/20 19 completed [facility] 10/20/2021 14:55:35 Past Encounters Encounter ID Performer Location Encounter Start Date Encounter Closed Date Diagnosis/Indication Diagnosis SNOMED-CT Code Diagnosis ICD10 Code Diagnosis Note [id number] Rashi Shah [facility] [address] [place] [address],[place] [address] 12/20/2017 12:01:16 12/20/2017 16:31:05 Hypertensive disorder 33051312 I10 currently is stable without meds cont activity Hypertriglyceridemia 302 894555 E78.1 last lab was excellent Adenomatou s polyp of colon 022394241 D12.6 next colonoscop y due in 2020 [id number] Rashi Shah [facility] [address],[place] [address] 02/07/2018 10:46:31 02/07/2018 13:57:59 Tick bite 27021696 S00.96XD order follow up lab [id number] Rashi Shah [facility] [address],[place] [address] 01/24/2021 14:17:57 01/24/2021 15:10:33 Hypertensive disorder 38575220 I10 we will need to bump up his hctz to 25 Restless legs 29991698 G 25.81 [id number] Rashi Adenike Shah [facility] [address] [facility],[place] [address] 03/26/2021 13:34:17 03/26/2021 14:32:20 Hypertensive disorder 43463779 I10 hctz to 25 mg and his bp is still sl high here he will need to chk at home vigilantly and record the numbers chk and report 1 mo Restless legs 53665893 G 25.81 we will bump dose up Primary er ectile dysfunction 860749468 N52.9 [id number] Rashi Shah [facility] [address] [facility] [place] [address] 05/02/2021 08:57:08 05/02/2021 14:09:51 Hypertensive disorder 08673546 I10 hctz to 25 mg and his bp is still sl high here he will need to cont chk at home vigilantly and record the numberswil l change to dyazide and will see if this lowers betterchk and report 1 mo Restless legs 32444545 G 25.81 he is doing much better and the ropinirole is working well at 1 mg Erectile dysfunction 860 221284 F52.21 we will have him try the sildenafil 100 [id number] Rashi Shah [facility] [address] [facility] [address],[place] [address] 10/20/2021 14:28:21 10/20/2021 16:13:35 Hypertriglyceridemia 271368962 E78.1 last lab was ok but trig was 201 Hepatitis C screening 41 9095041 Z11.59 done already with [facility] Hypertensive disorder 38 471421 I10 hctz to 25 mg and his bp is still sl high here he will need to cont chk at home vigilantly and record the numberswe will cont to monitor but realize we may need to stop the triam hctzchk and report 1 mo Renal insufficiency 7231 64896 N28.9 fwill drink plenty water in ext few weeks and rechk lab if still off we will dc the hctz as the culprit and give him a diff med [id number] Rashi Shah [facility] [address] [facility] [place] [address] 01/28/2022 11:10:32 01/28/2022 15:18:21 Adult health examination 000626316 Z00.00 have discussed in detail all diff aspects of his Screening for cardiovascular system disease 065839252 Z13.6 Screening for malignant neoplasm of colon 237800546 Z12.11 Active or passive immunization 262126284 Z23 patient advised he is due for shingles Advance care planning 71 7051149 Z71.89 done Hepatitis C screening 41 9879993 Z11.59 done already with [facility] Restless legs 05411383 G 25.81 he is doing much better and the ropinirole is working well at 1 mg Low back pain 927656856 M54.50 Pain of ri ght knee joint 9812193931 09556 M25.561 Pain of bi lateral hip joints 5487723857 0870348 M25.551 M25.552 Hypertensive disorder 38 788776 I10 stop dyazide not working for bp still elevated we will change to amlodipine [id number] Rashi Shah DO [facility] [address] [facility],[place] [address] 04/07/2022 14:58:40 04/07/2022 16:12:12 Hypertensive disorder 00321448 I10 amlodipine working well at low dose Hypertriglyceridemia 302 951283 E78.1 last lab was ok but trig was 201 Lumbago with sciatica 20 2538975 M54.41 pain is still present not changing not improving getting worse now hurts to do regular daily routine [id number] Rashi Shah DO [facility] [address] [facility],[place] [address] 05/08/2022 14:26:18 05/11/2022 08:43:28 Degeneration of lumbar intervertebral disc 71758469 M51.36 also with bilat facet arthropath y he will rest and then later determine if he needs to se neurosurgw ill get disc Herniation of nucleus pulposus of lumbar intervertebral disc 9403630648 76127 M51.26 L 5 involved with persistant back pain notedwe will have him rest for several weeks and get back to us and let us know whether to get him to back surg or ortho for hamnstring Strain of hamstring tendon 816341116 S76.311A we will treat with nsaid and rest Aneurysm o f iliac artery 61872386 I72.3 will need follow up views Abdominal aortic aneurysm 692551445 I71.40 will need followup views [id number] Rashi Shah DO [facility] [address] [facility],[place] [address] 10/14/2022 14:17:26 10/14/2022 15:21:06 Hypertensive disorder 51974281 I10 amlodipine working well at low dose Hypertriglyceridemia 302 115958 E78.1 last lab was ok but trig was 201 Tick bite 94346494 S00.9 6XD order follow up lab Aneurysm o f iliac artery 65012256 I72.3 will need follow up views [id number] Rashi Shah [facility] [address] [facility],[place] [address] 01/12/2024 10:48:38 01/12/2024 13:40:26 Renewal of prescription [id number] Z76.0 Depression screening 171 890569 Z13.31 SCREENING NEGATIVE Hypertensive disorder 38 082513 I10 we will substitute the amlodipine with a beta fox Restless legs [id number] G . will increase dose to tid Abdominal aortic aneurysm [id number] I71.40 will need followup views Insomnia [id number] G47.0 0 only has 5-6 hrs sleepsome night nonewill give zolpidem 10mg [id number] Rashi Shah [facility] [address] [facility],[place], [place] [address] 02/11/2024 10:37:02 02/11/2024 11:30:22 Hypertensive disorder [id number] I10 will change the betablocke r to a 20mg bid dose to see if that covers the bp and increases the heart rate a bit Abdominal aortic aneurysm [id number] I71.40 will need followup and this will be followed yearly currently only at 3.6 and is stable but will follow closely Pain of bi lateral hip joints [id number] M25.551 M25.552 he is going to try glucosamin e Restless legs 79612355 G . doing well with ropinirole [id number] Rashi Shah [facility] [address] [facility],[place], [place] [address] 03/29/2024 09:39:45 03/29/2024 10:19:39 Abdominal aortic aneurysm [id number] I71.40 will need followup and this will be followed yearly currently only at 3.6 and is stable but will follow closely Hypertensive disorder 38 281201 I10 stop propranolo l start metoprolol rechk in 3-4 weeks [id number] Rashi Shah [facility] [address] [facility],[place] [address] 06/23/2024 11:01:46 06/23/2024 11:50:51 Adult health examination [id number] Z00.01 have discussed in detail all diff aspects of his Screening for cardiovascular system disease 170324458 Z13.6 Screening for malignant neoplasm of colon 697150030 Z12.11 Degenerati on of lumbar intervertebral disc 98601376 M51.361 stiff ivy in the am sore at night as well Hypertensive disorder 38 933800 I10 stop propranolo l start metoprolol rechk in 3-4 weeks Renal insufficiency 7231 66983 N28.9 fwill drink plenty water in ext few weeks and rechk lab if still off we will dc the hctz as the culprit and give him a diff med Restless legs 24449439 G 25.81 doing well with ropinirole but still has breakthrou gh wondering if we change the fluoxetine to duloxetine Anxiety 15993432 F41.9 [id number] Rashi Shah [facility] [address] [facility],[place] [address] 07/28/2024 14:17:22 07/28/2024 15:01:04 Aneurysm of iliac artery 09557970 I72.3 will need follow up views Hypertensive disorder 38 443854 I10 stop propranolo l start metoprolol rechk in 3-4 weeks [id number] Rashi Shah [facility] [address] [facility] [place] [address] 10/23/2024 11:11:22 10/23/2024 12:10:48 Adult health examination 461279256 Z00.00 have discussed in detail all diff aspects of his Screening for cardiovascular system disease 604687438 Z13.6 will get Screening for malignant neoplasm of colon 036185073 Z12.11 Hypertriglyceridemia 302 773318 E78.1 last lab was ok but trig was 201 Renal insufficiency 7231 46589 N28.9 will drink plenty water in ext few weeks and rechk lab if still off we will dc the hctz as the culprit and give him a diff med check lab Abdominal aortic aneurysm 499513061 I71.40 will need followup and this will be followed yearly currently only at 3.6 and is stable but will follow closely Health Concerns Section Related Observation LastModified by Organization Detshamir ls LastModified Time None Recorded Concern Status LastModified by Organization Details LastModified Time None Recorded Advance Directives Directive None Recorded Payers Insurance Date Sequence Insurance Name Policy Number Policy Jay Covered Member ID Jay Member ID Guarantor Name 10/18/2024 1 [facility] - MEDICARE PREFERRED (MEDICARE REPLACEMENT HMO) DON Boudreaux Santi Jean [id number] 1 [place] Miranda 10/18/2024 1 [employer] (MEDICARE REPLACEMENT/AD VANTAGE - PPO) Janusz Miranda [id number] Janusz Jean Notes Date Note Type Note Provider Name and Address Organization Details Recorded Time 02/11/20 24 text/htm l Care Management - HypertensionReported bypatient.Self Care:not under emotional stress Severity:symptoms are improving; does not interfere with daily activities Associated Symptoms:no dizziness; no lightheadedness; no chest pain; no shortness of breath; no palpitations; no edema; no calf muscle cramps; no blurred vision; no confusion; no headaches; no fatigue here for rechk and is doing ok overall nrelates feels well with the propranolol 60 but we ahve noticed a decrease in his bp to better levelsbut also his pulse isin the 40's at times but he remains asymptomatic Rashi Shah DO [address] [place] [address], [id number], [facility] 02/11/2024 11:28:48 03/29/20 24 text/htm l here for elevated bpstates that he is having elevated at home ivy in amalso no cp no sob note had a sudden snap sensation to right tmj while eating a bagelsl sore and now a funny noise Rashi Shah DO [address] [place], [address], [facility] 03/29/2024 10:18:58 06/23/20 24 text/htm l Medicare Annual Wellness VisitReported bypatient.Diet and Nutrition:healthy diet Fracture Risk:no history of fractures; no recent explained fracture; no sudden unexplained fractures; no previous musculoskeletal injuries Physical Activity:exercises on a regular basis; recent increase in physical activity; good physical condition Depression Risk:never feels sad, empty, or tearful; no loss of interest in activities; no significant changes in weight; no sleep disturbances or insomnia; no agitation; no loss of energy; no feelings of worthlessness or guilt; no thoughts of suicide; no history of depression; no history of mood disorders Orientation:no disorientation to time; no disorientation to date; no disorientation to place Concentration and Memory:no decreased concentrating ability; no memory lapses or loss; does not forget words Speech/Motor difficulties:no speech difficulties; no difficulty expressing formulated concepts; no difficulty with fine manipulative tasks; no difficulty writing/copying; no slowed reaction time; does not knock things over when trying to pick them up Hearing:no loss of hearing Vision:no vision problems Activities of Daily Living:able to bathe with limited or no assistance; able to contol urination and bowels; able to dress with limited or no assistance; able to feed self with limited or no assistance; able to get out of chair or bed with limited or no assistance; able to groom with limited or no assistance; able to toilet with limited or no assistance Instrumental Activities of Daily Living:able to do house work with limited or no assistance; able to grocery shop with limited or no assistance; able to manage medications with limited or no assistance; able to manage money with limited or no assistance; able to prepare meals with limited or no assistance; able to use the phone with limited or no assistance Falls Risk Assessment:no frequent falls while walking; no fall in the past year; no fall since last visit; no dizziness/vertigo Home Safety:no unsafe cat hazzards; no unsafe stairs; no unsafe gas appliances; working smoke/CO detectors; wears protective head gear for biking/high velocity; use of seatbelts; practicing 'safer sex'; no vision or hearing loss while driving; no fire arms; has hand bars in the bathroom/shower; good lighting in the home here doing ok overallbps are goodhas restless leg and is taking ropinirole bid Rashi Shah, DO [address] [facility], [place], [address], [facility] 06/23/2024 11:48:20 10/24/19 25 text/htm l Care Management - HyperlipidemiaReported bypatient.Control:usually well controlled; improving; at goal Complications:no coronary artery disease; no heart attack; no cardiovascular disease; no pancreatitis; no strokeMedicare Annual Wellness VisitReported bypatient.Diet and Nutrition:healthy diet Fracture Risk:no history of fractures; no recent explained fracture; no sudden unexplained fractures; no previous musculoskeletal injuries Physical Activity:exercises on a regular basis; recent increase in physical activity; good physical condition Depression Risk:never feels sad, empty, or tearful; no loss of interest in activities; no significant changes in weight; no sleep disturbances or insomnia; no agitation; no loss of energy; no feelings of worthlessness or guilt; no thoughts of suicide; no history of depression; no history of mood disorders Orientation:no disorientation to time; no disorientation to date; no disorientation to place Concentration and Memory:no decreased concentrating ability; no memory lapses or loss; does not forget words Speech/Motor difficulties:no speech difficulties; no difficulty expressing formulated concepts; no difficulty with fine manipulative tasks; no difficulty writing/copying; no slowed reaction time; does not knock things over when trying to pick them up Hearing:no loss of hearing Vision:no vision problems Activities of Daily Living:able to bathe with limited or no assistance; able to contol urination and bowels; able to dress with limited or no assistance; able to feed self with limited or no assistance; able to get out of chair or bed with limited or no assistance; able to groom with limited or no assistance; able to toilet with limited or no assistance Instrumental Activities of Daily Living:able to do house work with limited or no assistance; able to grocery shop with limited or no assistance; able to manage medications with limited or no assistance; able to manage money with limited or no assistance; able to prepare meals with limited or no assistance; able to use the phone with limited or no assistance Falls Risk Assessment:no frequent falls while walking; no fall in the past year; no fall since last visit; no dizziness/vertigo Home Safety:no unsafe cat hazzards; no unsafe stairs; no unsafe gas appliances; working smoke/CO detectors; wears protective head gear for biking/high velocity; use of seatbelts; practicing 'safer sex'; no vision or hearing loss while driving; no fire arms; has hand bars in the bathroom/shower; good lighting in the homeNotes:[facility] save him a long trip doing well feels gooddenies any major issues going [facility] [place] [facility] for [facility] Rashi Shah, DO [address] [facility], [place], [address], [facility] 10/23/2024 12:00:32
[2025-01-25 09:53] LABS: Hematocrit 42.0 % (42.0-52.0); Hemoglobin 14.4 g/dl (14.0-18.0); Imm Gran Abs Auto 0.02 X10*3/uL (0.00-0.03); Imm Gran Pct Auto 0.4 % (0.0-0.4); Lymphocytes Absolute Auto 1.7 X10*3/uL (1.2-4.9); Mean Corpuscular HGB Conc 34.3 g/dl (31.0-36.0); Mean Corpuscular Hemoglobin 31.9 pg (27.0-33.0); Mean Corpuscular Volume 93.1 fL (80.0-98.0); NRBC Abs Auto 0.000 X10*3/uL (0.0-0.012); NRBC Pct Auto 0.0 /100WBC (0.0-0.2); Platelet Count 209 X10*3/uL (160-400); Red Blood Count 4.51 X10*6/uL (4.60-5.80); White Blood Count 5.2 X10*3/uL (4.8-10.8)
[2025-01-25 10:00] LABS: Hemoglobin A1C 152.0867 umol/L; Total Hemoglobin (HGBA1C) 3766.0106 umol/L
[2025-01-25 10:58] LABS: Alanine Aminotransferase 23 U/L (0-40); Albumin Level 4.0 g/dL (3.5-5.0); Alkaline Phosphatase 61 U/L (39-117); Anion Gap 10 (12-20); Aspartate Amino Transferase 25 U/L (5-37); Blood Urea Nitrogen 35 mg/dL (9-16); Calcium 9.1 mg/dL (8.4-10.2); Carbon Dioxide 26 mmol/L (22-29); Chloride 108 mmol/L (96-108); Cholesterol 199 mg/dL (<200); Estimated Glomerular Filt Rate 51; HDL Cholesterol 50 mg/dL (>40); Potassium 5.6 mmol/L (3.3-5.1); Sodium 138 mmol/L (135-145); Total Protein 7.1 g/dL (6.5-8.0); Triglycerides 163 mg/dL (<150)
[2025-01-25 11:13] LABS: Prostate Specific Antigen 1.94 ng/mL (<0.05-4.0)
== END 2025-01-25 09:19 | disposition home or self-care (01) ==
LOC: HO.LAB 09:18
PROVIDERS: PCP Internal Medicine; Visit Provider Internal Medicine
DX: Z00.00 Encounter for general adult medical examination without abnormal findings (principal); Z12.11 Encounter for screening for malignant neoplasm of colon; Z12.5 Encounter for screening for malignant neoplasm of prostate; Z13.1 Encounter for screening for diabetes mellitus
CPT/HCPCS: 36415; 80053; 80061; 83036; 84153; 85025